=== PATIENT | male | born 1970 | race Two or more races ===

== ENCOUNTER 2023-01-17 00:28 | Emergency (ER) | payer MEDICAID ==
[~2023-01-17] VITALS: Ht 172.7 cm; Wt 86.0 kg
[2023-01-17 00:57] VITALS: BP 156/97; PULSE 74; RESP 18; TEMP 97.5; O2SAT 98
[2023-01-17] MEDS ORDERED: TETANUS-DIPTH-ACEL PERTUSSIS 0.5ML SYR Tdap IM ONE (02:45)
[2023-01-17] MEDS ORDERED: AMOXICILLIN/CLAVUL 875 MG TAB PO ONE (02:45)
[2023-01-17] MEDS ORDERED: HYDR-4902 PO (03:50)
[2023-01-17] MEDS ORDERED: AUG875T PO (03:50)
[2023-01-17] MEDS ORDERED: MUPI2OIN2 EX (03:50)
== END 2023-01-17 03:57 | disposition home or self-care (01) ==
LOC: ER 00:28
DX: S70.11XA Contusion of right thigh, initial encounter (principal); S71.131A Puncture wound without foreign body, right thigh, initial encounter; W54.0XXA Bitten by dog, initial encounter; Y93.89 Activity, other specified; Y92.89 Other specified places as the place of occurrence of the external cause; Y99.8 Other external cause status
CPT/HCPCS: 90715; 93971

== ENCOUNTER 2023-10-28 14:10 | Emergency (ER) | payer MEDICAID ==
[~2023-10-28] VITALS: Ht 170.2 cm; Wt 83.1 kg
[~2023-10-28 14:10] MED LIST: AUG875T PO; HYDR-4902 PO; MUPI2OIN2 EX
[2023-10-28] MEDS: cloNIDine HCL 0.1 MG TAB PO ONE (17:31)
[2023-10-28 18:34] VITALS: BP 149/94; PULSE 83; RESP 18; TEMP 98.6; O2SAT 97
[2023-10-28] MEDS ORDERED: CLON0.2T PO (18:51)
[2023-10-28] MEDS ORDERED: AUG875T PO (18:51)
== END 2023-10-28 18:59 | disposition home or self-care (01) ==
LOC: ER 14:14
DX: S71.152A Open bite, left thigh, initial encounter (principal); I10 Essential (primary) hypertension; W54.0XXA Bitten by dog, initial encounter; Y93.89 Activity, other specified; Y92.89 Other specified places as the place of occurrence of the external cause; Y99.8 Other external cause status

== ENCOUNTER 2024-01-03 18:47 | Emergency (ER) | payer MEDICAID ==
[~2024-01-03 18:47] MED LIST changes: +CLON0.2T PO
[2024-01-03 19:51] VITALS: BP 164/67; PULSE 86; RESP 18; TEMP 98.3; O2SAT 97
[2024-01-03] MEDS ORDERED: IBUP-1456 PO (22:40)
[2024-01-03] MEDS: KETOROLAC TROMETH 60MG/2ML VIAL IM ONE (23:00)
== END 2024-01-03 23:11 | disposition home or self-care (01) ==
LOC: ER 18:47
DX: S93.492A Sprain of other ligament of left ankle, initial encounter (principal); R22.42 Localized swelling, mass and lump, left lower limb; Z79.1 Long term (current) use of non-steroidal anti-inflammatories (NSAID); Z79.899 Other long term (current) drug therapy; W18.49XA Other slipping, tripping and stumbling without falling, initial encounter; Y93.01 Activity, walking, marching and hiking; Y92.89 Other specified places as the place of occurrence of the external cause; Y99.8 Other external cause status
CPT/HCPCS: 73600; 96372; 99283; J1885

== ENCOUNTER 2024-03-06 00:12 | Emergency (ER) | payer MEDICAID ==
[~2024-03-06] VITALS: Ht 170.2 cm; Wt 84.0 kg
[~2024-03-06 00:12] MED LIST changes: +IBUP-1456 PO
--- NOTE | 2024-03-06 01:02 | ED.PDOC ---
Musculoskeletal HPI Comments THIS IS A 54-YEAR-OLD MALE PATIENT PRESENTS TO THE ED CHIEF COMPLAINT LEFT UPPER LEG PAIN. PATIENT REPORTS WAS SEEN HERE AT THIS ED SEVERAL DAYS AGO FOR DOG BITE IN HIS AREA WAS PRESCRIBED AUGMENTIN NOTES HAS BEEN TAKING MEDICATION PRESCRIBED. PATIENT CAME IN TONIGHT IMPORTANT CONCERN A POSSIBLE BLOOD CLOT TO THE AREA OF THE BITE. HE IS COMPLAINING OF BRUISING, TENDERNESS IN THE LUMP. HE STATES THE BRUISE HAS SHRUNKEN AND PRIOR HE NOTES IT WAS MOST OF THE WHOLE UPPER LEG NOW IT IS A SMALLER PATCH. HE DENIES CHEST PAIN, DIFFICULTY BREATHING, SHORTNESS OF BREATH, FEVERS, CHILLS, NAUSEA OR VOMITING. Chief Complaint: Lower Extremity Time Seen by MD: 00:31 Primary Care Provider: STEPHANIE Valdovinos Notes: Nurses Notes, Medications, Allergies Allergies: Coded Allergies: NO KNOWN ALLERGIES (Unverified , 01/17/23) Home Meds Active Scripts Ibuprofen (Ibuprofen) 800 Mg Tab, 1 TAB PO TID PRN for 7 Days, #21 TAB Prov:FLORES GIORDANO TRANSPORT DRIVER 01/03/24 Clonidine Hydrochloride (Clonidine Hcl) 0.2 Mg Tab, 1 TAB PO BIDP PRN, #20 TAB 0 Refills Prov:MARCELLE COTTON PAC 10/28/23 Amoxicillin & Pot Clavulanate (AUGMENTIN TABLET) 875 Mg Tb, 875 MG PO BID for 5 Days, #10 TAB Prov:MARCELLE COTTON PAC 10/28/23 Mupirocin (Pseudomonas Fluores (Mupirocin) 2 % Oin, 1 APPLIC EX TID, #15 MG Prov:DARCY MORRIS Q SALES OFFICE COORDINATOR 01/17/23 Hydrocodone-Acetaminophen (Hydrocodone Bitartrate/AC 5-325 mg) 1 Tab Tab, 1 TAB PO Q6HR, #8 TAB as needed for pain Prov:ADEBAYO MORRISA Q SALES OFFICE COORDINATOR 01/17/23 Amoxicillin & Pot Clavulanate (AUGMENTIN TABLET) 875 Mg Tb, 1 TAB PO BID for 10 Days, #20 TAB Prov:DARCY MORRIS Q SALES OFFICE COORDINATOR 01/17/23 Mode of Arrival: Ambulatory Past Medical History PAST MEDICAL HISTORY: Denies Surgical History: Denies all surgeries Family History Family History: Reviewed,noncontributory to illness, No family hx of Cancer, No family hx of DM, No family hx of Heart michelet, No family hx of HTN, No family hx ofKidney michelet, No family hx of Liver michelet, No family hx of Lung michelet, No family hx of Stroke Social History Smoker: Non-Smoker Alcohol: Denies ETOH Use Drugs: Denies Drug Use Lives In: Home Constitutional: denies: chills, diaphoresis, fatigue, fever, malaise, sweats, weakness, others EENTM: denies: blurred vision, double vision, ear bleeding, ear discharge, ear drainage, ear pain, ear ringing, eye pain, eye redness, hearing loss, mouth pain, mouth swelling, nasal discharge, nose bleeding, nose congestion, nose pain, photophobia, tearing, throat pain, throat swelling, voice changes, others Respiratory: denies: cough, hemoptysis, orthopnea, SOB at rest, shortness of breath, SOB with excertion, stridor, wheezing, others Cardiovascular: denies: chest pain, dizzy spells, diaphoresis, Dyspnea on exertion, edema, irregular heart beat, left arm pain, lightheadedness, palpitations, PND, syncope, others Gastrointestinal: denies: abdomen distended, abdominal pain, blood streaked bowels, constipated, diarrhea, dysphagia, difficulty swallowing, hematemesis, melena, nausea, poor appetite, poor fluid intake, rectal bleeding, rectal pain, vomiting, others Genitourinary: denies: burning, dysuria, flank pain, frequency, hematuria, incontinence, penile discharge, penile sore, pain, testicle pain, testicle swell ing, urgency, others Neurological: denies: dizziness, fainting, headache, left sided numbness, left sided weakness, numbness, paresthesia, pre-existing deficit, right sided numbness, right sided weakness, seizure, speech problems, tingling, tremors, weakness, others Musculoskeletal: denies: back pain, gout, joint pain, joint swelling, muscle pain, muscle stiffness, neck pain, others Integumetry: reports: bruises (LEFT UPPER THIGH); denies: change in color, change in hair/nails, dryness, laceration, lesions, lumps, rash, wounds, others Allergic/Immunocompromised: denies: Difficulty Healing, Frequent Infections, Hives, Itching, others Hematologic/Lymphatic: denies: anemia, blood clots, easy bleeding, easy bruising, swollen glands, others Endocrine: denies: excessive hunger, excessive sweating, excessive thirst, excessive urination, flushing, intolerance to cold, intolerance to heat, unexplained weight gain, unexplained weight loss, others Psychiatric: denies: anxiety, bipolar disorder, depression, hopeless, panic disorder, schizophrenia, sleepless, suicidal, others Physical Exam General Appearance: No Apparent Distress, Normal HEENT: Pharynx Normal Neck: Full Range of Motion, Non-Tender Respiratory: Lungs Clear, No Respiratory Distress, Normal Breath Sounds Cardiovascular: No Edema, No JVD, No Murmur, No Gallop, Normal Peripheral Pulses, Regular Rate/Rhythm Breast Exam: Deferred Gastrointestinal: No Organomegaly, Non Tender, No Pulsatile Mass, Normal Bowel Sounds, Soft Genitalia: Deferred Pelvic: Deferred Rectal: Deferred Extremities: Normal capillary refill, Normal inspection, Normal range of motion, Non-tender, No pedal edema Musculoskeletal : Location: Left (PROXIMAL MEDIAL THIGH NOTED ECCHYMOSIS WITHOUT WARMTH MILD TENDERNESS NO NOTED STREAKING OR ERYTHEMA NORMAL HEALING.) Apperance: Normal Neurologic: Alert, traffic court referee II-XII nml as Tested, No Motor Deficits, Normal Affect, Normal Mood, No Sensory Deficits Cerebellar Function: Normal Reflexes: Normal Skin: Dry, Normal Color, Warm Lymphatic: No Adenopathy Was a procedure done? Was a procedure done?: No Differential Diagnosis EXT Differential Diagnosis: Cellulitis, Deep Vein Thrombosis X-Ray, Labs, Meds, VS Vital Signs Date Time Temp Pulse Resp B/P (MAP) Pulse Ox O2 Delivery O2 Flow Rate FiO2 03/06/24 01:09 69 18 166/95 (118) 03/06/24 01:04 79 16 97 Room Air 03/06/24 00:26 97.9 79 16 170/102 (124) 97 X-Ray, Labs, Meds, VS Comment NORMAL HEALING OF HEMATOMA. PATIENT TO CONTINUE TO MONITOR RETURN IF INCREASING PAIN, NUMBNESS, WEAKNESS OF THE EXTREMITY. ADVISED TO AVOID ICE AT THIS TIME C ONSIDER WARM COMPRESSES FOLLOW UP WITH PCP IN 2-3 DAYS NECESSARY. ER RETURN PRECAUTIONS GIVEN PATIENT INDICATED UNDERSTANDING AGREES WITH DISCHARGE PLAN OF CARE. Time of 1ST Reevaluation: 01: Reevaluation 1ST: Improved Patient Education/Counseling: Diagnosis, Treatment, Prognosis, Need For Follow Up Family Education/Counseling: No Family Present Departure 1 Departure Time of Disposition: 01:02 Impression: Primary Impression: Hematoma Disposition: 01 HOME / SELF CARE / HOMELESS Condition: Stable Discharged With: Self Critical Care Note Critical Care Time?: No Stability Stability form required: FLORES Engel Mar 06, 2024 01:02
[2024-03-06 01:04] VITALS: O2SAT 97
[2024-03-06 01:09] VITALS: BP 166/95; PULSE 69; RESP 18
== END 2024-03-06 01:26 | disposition home or self-care (01) ==
LOC: ER 00:12
DX: S70.12XD Contusion of left thigh, subsequent encounter (principal); Z79.899 Other long term (current) drug therapy; W54.0XXD Bitten by dog, subsequent encounter

== ENCOUNTER 2024-07-22 09:06 | Emergency (ER) | payer MEDICAID ==
[~2024-07-22] VITALS: Ht 170.2 cm; Wt 78.4 kg
[2024-07-22 09:30] VITALS: BP 160/102; PULSE 93; RESP 18; TEMP 98; O2SAT 97
--- NOTE | 2024-07-22 10:07 | DVH ---
EXAM: CT HEAD WITHOUT CONTRAST HISTORY: HEAD INJURY COMPARISON: None TECHNIQUE: Axial images of the head were obtained and reformatted in coronal and sagittal planes. All CT scans at this medical facility are performed using dose modulation techniques as appropriate t o a performed exam including the following: Automated exposure control was utilized; adjustment of th e MA and/or KV according to patient size; and use of iterative reconstruction technique. CT Dose: CTDI volume is 67 mGy. Dose-length product is 2948 mGy*cm FINDINGS: There is no evidence of acute intracranial hemorrhage, mass, mass effect midline shift. There is no h ydrocephalus or extra-axial fluid collection. Woodson-white matter differentiation is maintained. The visualized paranasal sinuses and mastoid air cells are clear. The calvarium is intact. IMPRESSION: 1. No acute intracranial process. HS:Y
--- NOTE | 2024-07-22 10:28 | DVH ---
CT MAXILLOFACIAL WITHOUT INDICATION: HEAD INJURY : 54 old Male HEAD INJURY EXAM DATE: 07/22/2024 09:22 AM COMPARISON: None RADIATION DOSE: CTDIvol: 66 mGy, DLP: 1334 mGy*cm PROCEDURE: Using the CT scanner, contiguous noncontrast scans were obtained from above the orbital ri ms to below the mandible. Coronal and sagittal reformatted images were then generated. All CT scans at this medical facility are performed using dose modulation techniques as appropriate t o a performed exam including the following: Automated exposure control was utilized; adjustment of th e MA and/or KV according to patient size; and use of iterative reconstruction technique. FINDINGS: The facial bones, including the orbits and paranasal sinuses are intact without evidence of fracture. The paranasal sinuses, mastoid air cells and middle ear cavities are normally aerated. The orbital contents are normal. The soft tissues of the face are unremarkable. IMPRESSION: No acute fracture CT findings of the maxillofacial region.
[2024-07-22] MEDS ORDERED: ACET500T58 PO (11:02)
--- NOTE | 2024-07-22 11:03 | ED.PDOC ---
Yusuf. trauma (HPI) HPI Comments 54-year-old male with no MHx presents after a mechanical fall. Currently complains of a generalized headache that comes and goes. Reports he tripped over his dog fence while walking on the hallway four days ago in has been experiencing a persistent headache since. Associated with intermittent nausea but no vomiting. Has not taken medications for the symptoms listed above Denies vomiting Denies thunderclap headache Denies photophobia, phonophobia Denies taking any blood thinner medication Denies vision/hearing changes Denies focal loss of strength/sensation or changes in speech Chief Complaint: Fall Injury Time Seen by MD: 09:19 Primary Care Provider: STEPHANIE Valdovinos notes: Nurses Notes Allergies: Coded Allergies: NO KNOWN ALLERGIES (Unverified , 01/17/23) Home Meds Active Scripts Acetaminophen (Acetaminophen) 500 Mg Tab, 500 MG PO Q6HP PRN for 10 Days, #40 TAB 0 Refills Prov:KIMMY DYKES ACTIVATED SLUDGE OPERATOR 07/22/24 Ibuprofen (Ibuprofen) 800 Mg Tab, 1 TAB PO TID PRN for 7 Days, #21 TAB Prov:FLORES GIORDANO APPLICATIONS SYSTEM ANALYST 01/03/24 Clonidine Hydrochloride (Clonidine Hcl) 0.2 Mg Tab, 1 TAB PO BIDP PRN, #20 TAB 0 Refills Prov:MARCELLE COTTON PAC 10/28/23 Amoxicillin & Pot Clavulanate (AUGMENTIN TABLET) 875 Mg Tb, 875 MG PO BID for 5 Days, #10 TAB Prov:MARCELLE COTTON PAC 10/28/23 Mupirocin (Pseudomonas Fluores (Mupirocin) 2 % Oin, 1 APPLIC EX TID, #15 MG Prov:DARCY MORRIS ACTIVATED SLUDGE OPERATOR 01/17/23 Hydrocodone-Acetaminophen (Hydrocodone Bitartrate/AC 5-325 mg) 1 Tab Tab, 1 TAB PO Q6HR, #8 TAB as needed for pain Prov:DARCY MORRIS ACTIVATED SLUDGE OPERATOR 01/17/23 Amoxicillin & Pot Clavulanate (AUGMENTIN TABLET) 875 Mg Tb, 1 TAB PO BID for 10 Days, #20 TAB Prov:DARCY MORRIS ACTIVATED SLUDGE OPERATOR 01/17/23 Information Source: Patient Mode of Arrival: Ambulatory Past Medical History PAST MEDICAL HISTORY: Denies Surgical History: Denies all surgeries Family History Family History: Reviewed,noncontributory to illness, No family hx of Cancer, No family hx of DM, No family hx of Heart michelet, No family hx of HTN, No family hx ofKidney michelet, No family hx of Liver michelet, No family hx of Lung michelet, No family hx of Stroke Social History Smoker: Non-Smoker Alcohol: Denies ETOH Use Drugs: Denies Drug Use Lives In: Home All Other Systems: Reviewed and Negative (per hpi) Physical Exam General Appearance: No Apparent Distress, Normal HEENT: Head (Head is normocephalic atraumatic), Normal ENT Inspection, Pharynx Normal, TMs Normal Neck: Full Range of Motion, Non-Tender, Normal, Normal Inspection Respiratory: Chest Non-Tender, Lungs Clear, No Accessory Muscle Use, No Respiratory Distress, Normal Breath Sounds Cardiovascular: No Edema, No JVD, No Murmur, No Gallop, Normal Peripheral Pulses, Regular Rate/Rhythm Breast Exam: Deferred Gastrointestinal: No Organomegaly, Non Tender, No Pulsatile Mass, Normal Bowel Sounds, Soft Genitalia: Deferred Pelvic: Deferred Rectal: Deferred Extremities: No calf tenderness, Normal capillary refill, Normal inspection, Normal range of motion, Non-tender, No pedal edema Musculoskeletal : Apperance: Normal Neurologic: Alert, assembling inspector II-XII nml as Tested, No Motor Deficits, Normal Affect, Normal Mood, No Sensory Deficits Cerebellar Function: Normal Reflexes: Normal Skin: Dry, Normal Color, Warm Lymphatic: No Adenopathy Was a procedure done? Was a procedure done?: No Differential Diagnosis Multiple Trauma: Closed Head Injury, Fractures X-Ray, Labs, Meds, VS Vital Signs Date Time Temp Pulse Resp B/P (MAP) Pulse Ox O2 Delivery O2 Flow Rate FiO2 07/22/24 09:30 98.0 93 18 160/102 (121) 97 98.0 07/22/24 09:30 93 18 97 Room Air 07/22/24 09:23 98.2 93 18 160/92 (114) 97 98.2 X-Ray, Labs, Meds, VS Comment The following differential diagnoses were considered for this patient; subdural hematoma, subarachnoid hemorrhage, epidural hematoma, intraparenchymal bleed, herniation, skull fracture. The patient had a computed tomography of their head without any evidence of acute intracranial abnormality as per radiology. The patient is neurologically intact by exam and is able to ambulate without difficulty. A complete examination does not reveal any other related injury at this time. The patient is not currently utilizing any anticoagulants. The patient is advised to use tylenol as needed for pain. The patient is instructed to follow up their primary care physician as needed or return to ER if vomiting or worsening headache occurs. The patient was counseled in regards to the diagnosis and management of the condition and verbalized understanding of this. Time of 1ST Reevaluation: 11: Reevaluation 1ST: Improved Patient Education/Counseling: Diagnosis, Treatment Family Education/Counseling: Diagnosis, Treatment Departure 1 Departure Time of Disposition: 11: Impression: Primary Impression: Blunt head trauma Qualified Codes: S09.8XXA - Other specified injuries of head, initial encou nter Disposition: HOME / SELF CARE / HOMELESS Condition: Fair e-Prescriptions Acetaminophen (Acetaminophen) 500 Mg Tab 500 MG PO Q6HP PRN for 10 Days, #40 TAB 0 Refills Prov: KIMMY DYKES NP 07/22/24 Critical Care Note Critical Care Time?: No Stability Stability form required: No Heart Score Heart Score: Heart Score Response (Comments) Value History N/A 0 EKG N/A 0 Age N/A 0 Risk Factors N/A 0 Troponin N/A 0 Total 0 KIMMY DYKES NP Jul 22, 2024 11:02
== END 2024-07-22 11:03 | disposition home or self-care (01) ==
LOC: ER 09:06
DX: S09.8XXA Other specified injuries of head, initial encounter (principal); W01.0XXA Fall on same level from slipping, tripping and stumbling without subsequent striking against object, initial encounter; Y93.K1 Activity, walking an animal; Y92.89 Other specified places as the place of occurrence of the external cause; Y99.8 Other external cause status
CPT/HCPCS: 70450; 70486